=== PATIENT | male | born 2000 | race Caucasian/White ===

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

== ENCOUNTER 2024-04-25 10:08 | Inpatient (IN) | payer MEDICAID, OTHER ==
[~2024-04-25] VITALS: Ht 175.3 cm; Wt 60.0 kg
[~2024-04-25 10:08] MED LIST: IBUP-1453 PO; PANT40T PO
--- NOTE | 2024-04-25 10:20 | ED.PDOC ---
GI ASSESSMENT HPI Comments 23y F who presents to the ED for chief complaint of abdominal pain. Pt states he has been having abdominal pain for the past 2 days.Pt states his pain has been diffusely constant, non-radiating, with no associated exacerbating or relieving factors. Pt has associated nausea and vomiting but denies diarrhea, chills, dysuria, hematuria or hematemesis. Vomit is nonbilious nonbloody. Pt states he had fever of 101 earlier this AM and states he took Tylenol and ibuprofen at 9 AM but states he had no change in temperature prior to ED arrival. Pt otherwise denies any recent sick contacts or changes to diet. Pt in the ED, has noted temp of 100.1 F and noted heart rate of 119 with all vitals in normal range. Pt otherwise denies any other symptoms at this time. Vitals T: 100.1F RR: 16 HR: 119 BP: 113/72 O2: 99% on RA PMH: pancreatitis PSH: cholecystectomy Social hx: endorses tobacco use, endorsees ETOH use, endorses drug use(marijuana) Meds: denies Allergies: NKDA HPI: Poor Historian. REVIEW OF SYSTEMS: CONSTITUTIONAL: Denies acute: diaphoresis, chills, HEAD: Denies acute: headache, photophobia Eyes: Denies acute: Double vision, vision loss, eye pain, eye discharge. EARS: Denies acute: tinnitus, hearing loss, ear discharge, ear pain, THROAT: Denies acute: sore throat, swelling, difficulty swallowing , pain with swallowing, change in voice. NECK: Denies acute: neck pain, neck swelling, stiff neck. HEART: Denies acute : chest pain, palpitations, LUNGS: Denies acute: SOB, wheezing, cough, hemoptysis ABDOMEN: Denies acute: diarrhea, melena , hematemesis, hematochezia SKIN: Denies acute: rash, redness, lesions, itchiness. EXTREMITIES: Denies acute: calf pain, numbness, tingling, weakness, denies pain in extremity. Denies acute: Low back pain. Neuro: Denies acute: focal neurological deficit, motor or sensory focal neurological deficit, tremors, seizure like activity, confusion, dizziness, change in mental status, loss of bowel or bladder function, cauda equina like symptoms. : Denies acute: dysuria, hematuria, flank pain, increase in urinary frequency. PSYCH: Denies acute: hallucination, suicidal ideation, homicidal ideation. PHYSICAL EXAM: General: no acute distress, awake and alert. Head: normocephalic, atraumatic. Neck: supple, trachea is midline, no swelling. Throat: Normal phonation. Eyes:, no erythema, no purulent discharge, no proptosis, no icterus. Heart: regular tachycardia in the setting of a fever, no significant murmur appreciated. Lungs: no apparent respiratory distress, Able to speak in full sentences. No wheezing, no rhonchi, no crackles. No stridors Clear to auscultation bilaterally. Abdomen: Generalized tender to palpation, non distended, soft, no guarding, no rebound, + bowel sounds. Neuro: Awake, Alert, oriented to name, self, situation, follows commands GCS=15. Speech is normal. Skin: no petechia, no purpura, no cyanosis, non-pale, not jaundice. Lower extremities: --no - Pitting edema no deformity, no focal swelling, no calf TTP. Makes eye contact. moves all four extremities. Face: no apparent facial droop. Ambulating in the ED independently. Chief Complaint: Abdominal Pain Time Seen by MD: 10:29 Reviewed Notes: Nurses Notes, Allergies Allergies: Coded Allergies: No Known Drug Allergy (Verified Allergy, Unknown, 12/28/20) Home Meds Active Scripts Ibuprofen (Ibuprofen) 400 Mg Tab, 1 TAB PO TID PRN, #30 TAB Prov:SALOMÓN AMADOR MD 01/03/21 Pantoprazole Sodium Sesquihydr (Pantoprazole Sodium) 40 Mg Tab, 40 MG PO DAILY for 30 Days, #30 TAB Prov:SALOMÓN AMADOR MD 01/03/21 Information Source: Patient Mode of Arrival: Ambulatory Brought in by: self Past Medical History PAST MEDICAL HISTORY: Denies Surgical History: Cholecystectomy Family History Family History: Reviewed,noncontributory to illness Social History Smoker: Non-Smoker Alcohol: Denies ETOH Use Drugs: Marijuana Lives In: Home Was a procedure done? Was a procedure done?: No GI differential Dx Differential Diagnosis: Other (DDX include but not limited to diverticulitis, colitis, gastroenteritis, acute abdomen, SBO, enteritis, constipation, volvulus, appendicitis, Gallbladder disease, choledocolithiasis, ascending cholangitis, pancreatitis, intraAbdominal mass/neoplasm, hepatitis, UTI, pylonephritis, kidney stone, aneurysm, dissection, Inflammatory bowel disease, gastroparesis, ischemic bowel.) X-Ray, Labs, Meds, VS Vital Signs Date Time Temp Pulse Resp B/P (MAP) Pulse Ox O2 Delivery O2 Flow Rate FiO2 04/25/24 16:20 91.2 69 18 107/68 (81) 96 91.2 04/25/24 13:30 98.7 70 18 108/68 (81) 99 98.7 04/25/24 11:33 98.7 98.7 04/25/24 10:41 115 19 99 Room Air* 0 21 04/25/24 10:39 101.3 115 19 112/76 (88) 99 101.3 04/25/24 10:13 100.1 119 16 113/72 (86) 99 Lab Test 04/25/24 13:42 04/25/24 11:59 04/25/24 11:17 04/25/24 10:48 Range/Units White Blood Count 13.4 H 13.3 H 4.4-10.8 10^3/uL Red Blood Count 5.18 4.99 4.5-5.90 10^6/uL Hemoglobin 15.6 15.3 13.5-17.5 g/dL Hematocrit 46.6 44.5 41.0-53.0 % Mean Corpuscular Volume 90.0 89.2 80.0-100.0 fL Mean Corpuscular Hemoglobin 30.2 30.7 28.0-32.0 pg Mean Corpuscular Hemoglobin Concent 33.5 34.5 32.0-36.0 g/dL Red Cell Distribution Width 13.7 13.8 11.8-14.3 % Platelet Count 85 L 108 L 140-450 10^3/uL Mean Platelet Volume 7.7 8.3 6.9-10.8 fL Neutrophils (%) (Auto) 90.0 H 95.7 H 37.0-80.0 % Lymphocytes (%) (Auto) 6.8 L 1.6 L 10.0-50.0 % Monocytes (%) (Auto) 3.0 2.2 0.0-12.0 % Eosinophils (%) (Auto) 0.0 0.0 0.0-7.0 % Basophils (%) (Auto) 0.2 0.5 0.0-2.0 % Neutrophils # (Auto) 12.0 H 12.8 H 1.6-8.6 10 ^3/uL Lymphocytes # (Auto) 0.9 0.2 L 0.4-5.4 10 ^3/uL Monocytes # (Auto) 0.4 0.3 0-1.3 10 ^3/uL Eosinophils # (Auto) 0 0 0-0.8 10 ^3/uL Basophils # (Auto) 0 0.1 0-0.2 10 ^3/uL Nucleated Red Blood Cells 0.1 0.0 % Platelet Estimate Decreased Red Blood Cell Morphology Normal Sodium Level 139 135 L 136-145 mmol/L Potassium Level 4.0 3.7 3.5-5.1 mmol/L Chloride Level 103 98 98-107 mmol/L Carbon Dioxide Level 28 29 20-31 mmol/L Anion Gap 8 8 5-15 Blood Urea Nitrogen 16 17 9-23 mg/dL Creatinine 1.10 1.34 H 0.700-1.30 mg/dL Glomerular Filtration Rate Calc 97 77 >90 mL/min BUN/Creatinine Ratio 14.5 12.7 10.0-20.0 Serum Glucose 107 H 118 H 74-106 mg/dL Calcium Level 9.8 10.0 8.7-10.4 mg/dL Total Bilirubin 1.8 H 2.4 H 0.2-1.0 mg/dL Aspartate Amino Transferase (AST) 140 H 100 H 13-40 U/L Alanine Aminotransferase (ALT) 138 H 97 H 7-40 U/L Alkaline Phosphatase 69 70 46-116 U/L Total Protein 7.3 7.2 5.7-8.2 g/dL Albumin 4.9 H 4.7 3.2-4.8 g/dL Influenza Type A Antigen Negative Negative Influenza Type B Antigen Negative Negative SARS-CoV-2 Antigen (Rapid) Negative NEGATIVE Urine Color Yellow Yellow Urine Clarity Clear Clear Urine pH 6.5 5.0-9.0 Urine Specific [place] 1.032 1.001-1.035 Urine Protein 2+ H Negative Urine Ketones 1+ H Negative Urine Blood Trace H Negative /uL Urine Nitrite Negative Negative Urine Bilirubin Negative Negative Urine Urobilinogen Normal Negative mg/dL Urine Leukocyte Esterase Negative Negative /uL Urine RBC 2 0 - 3 /hpf Urine WBC 2 0 - 3 /hpf Urine Squamous Epithelial Cells None seen <5 /hpf Urine Bacteria None seen None Seen /hpf Urine Glucose Normal Normal mg/dL Urine Opiates Screen Neg NEGATIVE Urine Fentanyl Screen Neg NEGATIVE Urine Barbiturates Screen Neg NEGATIVE Urine Phencyclidine Screen Neg NEGATIVE Urine Amphetamines Screen Neg NEGATIVE Urine Benzodiazepines Screen Neg NEGATIVE Urine Cocaine Screen Neg NEGATIVE Urine Cannabinoids Screen Pos NEGATIVE Lactic Acid Level 1.7 0.4-2.0 mmol/L Troponin I High Sensitivity < 3 L </=54 ng/L Lipase 31 12-53 U/L Current Medications Medications (Trade) Dose Ordered Sig/Kishor Route Start Time Stop Time Status Last Admin Sodium Chloride 1,000 ml @ 1,000 mls/hr Q1H ONCE IV 04/25/24 10:45 04/25/24 11:44 DC 04/25/24 10:53 Ondansetron HCl (Zofran) 8 mg ONCE ONCE IV 04/25/24 10:45 04/25/24 10:46 DC 04/25/24 10:53 Acetaminophen/ Hydrocodone Bitart ([place] 5/325MG Tab) 1 tab ONCE ONCE PO 04/25/24 11:00 04/25/24 11:01 DC 04/25/24 10:58 [place] [id number] Ph: [phone] DIAGNOSTIC IMAGING Diagnostic Imaging Report : [id number] Signed PATIENT: RIGOBERTO MCKEON ACCT: [id number] UNIT: [id number] : 2000 LOC: ER ROOM / BED: / AGE / SEX: 23 / M ADM STATUS: REG ER SERVICE 1028 ORDERING PHYSICIAN: MERRILL LUNA DO PROCEDURE(s): ABPL - CT AB PEL WO CON-NO ORAL OR IV REASON: ABD PAIN N/V ORDER NUMBER(s): [id number], ACCESSION NUMBER(s): [id number] CT ABDOMEN AND PELVIS WITHOUT CONTRAST CLINICAL HISTORY: ABD PAIN N/V TECHNIQUE: Multiple contiguous axial images of the abdomen and pelvis without intravenous contrast. The images were reformatted degenerate coronal and sagittal reconstructions. All CT scans at this medical facility are performed using dose modulation techniques as appropriate to a performed exam including the following:Automated exposure control was utilized; adjustment of the MA and/or KV according to patient size; and use of iterative reconstruction technique. Radiation Dose Information: CT Dose: CTDI volume is 5.07 mGy. Dose-length product is 290.12 mGy*cm Comparison: CT ABD PELVIS WO CONTRAST on DOS: 12/28/20 FINDINGS: Evaluation of the abdomen and pelvis is limited without intravenous contrast. Gallbladder is surgically absent. The liver, pancreas, kidneys, adrenal glands, and spleen appear within normal limits. There is no gross evidence of abdominal lymphadenopathy. There is no free fluid or free air. The stomach grossly appears unremarkable. The small and large bowel loops demonstrate normal caliber. The appendix is not readily seen in the right lower quadrant abdomen. There are no secondary signs of acute appendicitis. The abdominal aorta and IVC appear within normal limits. Bladder is poorly filled limiting evaluation. Pelvic organ appears within normal limits. There is no gross evidence of a pelvic mass. There is no free fluid collection. Lung bases are clear. There is no acute osseous abnormality. IMPRESSION: 1. There is no acute process in the abdomen and pelvis. 2. Cholecystectomy. HS:Y ATED BY: SAAD HAWTHORNE MD DICTATED DATE/TIME: 04/25/24 105 SIGNED BY: SAAD HAWTHORNE MD SIGNED DATE/TIME: 04/25/241056 CC: Time of 1ST Reevaluation: 19:44 Reevaluation 1ST: Improved Patient Education/Counseling: Diagnosis, Treatment Family Education/Counseling: No Family Present Comments Patient presented with the above HPI.----abdominal pain--workup was initiated. p atient was found with the above mentioned diagnosis. Patient was given: Fluids, Zofran, fentanyl. Patient ED course and VS have been stabilized. Patient has been reassessed in the ED and remained in a stable condition. Pertinent incidental findings were discussed with the patient and/or family. Patient/family voices understanding and is agreeable with plan. Patient has been observed in the ED adequate length of time to insure improvement/stability. Repeat labs showed worsening of his LFTs. patient was admitted to the medicine team for further evaluation and treatment of their presentation. All the reports of any imaging studies that were ordered by myself were reviewed by myself. Departure 1 Departure Time of Disposition: 14:26 Impression: Primary Impression: Acute abdominal pain Additional Impressions: Nausea and vomiting Elevated LFTs Disposition: ADMITTED INPATIENT Admit to: Med Surg Condition: Guarded Additional Instructions: Additional discharge instructions: You MUST follow-up with your primary care/family doctor in 1 to 2 days. If you are unable to see your primary care/family doctor, please return to our emergency room for re-assessment and re-evaluation in 1 to 2 days. Return to the emergency room here in our facility or to the nearest ER [facility] if your symptoms change or worsen. CONSULTATIONS: you MUST Follow-up for consultation as soon as possible with: gastroenterology in 1-2 days. Please call for appointment. You MUST call the consultants office yourself to make an appointment. You may need to arrange that through your insurance and/or your primary/family doctor. If you are unable to see the international travel consultant in 1 to 2 days, you must return to our emergency room (or any other ER of your choice) for re-assessment and re- evaluation. Adequate fluid hydration. Avoid fatty greasy spicy food. Avoid caffeinated products. Avoid NSAIDs. Below is a copy of your radiological report for follow up: [place] [address] Ph: [phone] DIAGNOSTIC IMAGING Diagnostic Imaging Report : [id number] Signed PATIENT: RIGOBERTO MCKEON ACCT: [id number] UNIT: [id number] : 2000 LOC: ER ROOM / BED: / AGE / SEX: 23 / M ADM STATUS: REG ER SERVICE 1028 ORDERING PHYSICIAN: MERRILL LUNA DO PROCEDURE(s): ABPL - CT AB PEL WO CON-NO ORAL OR IV REASON: ABD PAIN N/V ORDER NUMBER(s): [id number], ACCESSION NUMBER(s): [id number] CT ABDOMEN AND PELVIS WITHOUT CONTRAST CLINICAL HISTORY: ABD PAIN N/V TECHNIQUE: Multiple contiguous axial images of the abdomen and pelvis without intravenous contrast. The images were reformatted degenerate coronal and sagittal reconstructions. All CT scans at this medical facility are performed using dose modulation techniques as appropriate to a performed exam including the following:Automated exposure control was utilized; adjustment of the MA and/or KV according to patient size; and use of iterative reconstruction technique. Radiation Dose Information: CT Dose: CTDI volume is 5.07 mGy. Dose-length product is 290.12 mGy*cm Comparison: CT ABD PELVIS WO CONTRAST on DOS: 12/28/20 FINDINGS: Evaluation of the abdomen and pelvis is limited without intravenous contrast. Gallbladder is surgically absent. The liver, pancreas, kidneys, adrenal glands, and spleen appear within normal limits. There is no gross evidence of abdominal lymphadenopathy. There is no free fluid or free air. The stomach grossly appears unremarkable. The small and large bowel loops demonstrate normal caliber. The appendix is not readily seen in the right lower quadrant abdomen. There are no secondary signs of acute appendicitis. The abdominal aorta and IVC appear within normal limits. Bladder is poorly filled limiting evaluation. Pelvic organ appears within normal limits. There is no gross evidence of a pelvic mass. There is no free fluid collection. Lung bases are clear. There is no acute osseous abnormality. IMPRESSION: 1. There is no acute process in the abdomen and pelvis. 2. Cholecystectomy. HS:Y ATED BY: SAAD HAWTHORNE MD DICTATED DATE/TIME: 04/25/24 1057 SIGNED BY: SAAD HAWTHORNE MD SIGNED DATE/TIME: 04/25/24 105 CC: Discharged With: Self Critical Care Note Critical Care Time?: No I personally scribed for MERRILL LUNA DO ([email or web address]) on 04/25/24 at 10:20. Electronically submitted by Guicho Mares (TOMER). I personally scribed for MERRILL LUNA DO ([email or web address]) on 04/25/24 at 10:29. Electronically submitted by Guicho Mares (TOMER). I personally scribed for MERRILL LUNA DO ([email or web address]) on 04/25/24 at 11:35. Electronically submitted by Guicho Mares (TOMER). I personally scribed for MERRILL LUNA DO ([email or web address]) on 04/25/24 at 14:53. Electronically submitted by Guicho Mares (TOMER). MERRILL LUNA DO Apr 25, 2024 10:20
[2024-04-25 10:41] VITALS: PULSE 115; RESP 19; O2SAT 99
[2024-04-25] MEDS ORDERED: fentaNYL CITRATE 100 MCG/2 ML VL IV ONE (10:45)
[2024-04-25] MEDS: SODIUM CHLORIDE 0.9% 1,000 ML IV ONE (10:53)
[2024-04-25] MEDS: ONDANSETRON HCL 4 MG/2 ML VIAL IV ONE (10:53)
[2024-04-25] MEDS: HYDROcodone-ACET 5/325MG TAB PO ONE (10:58)
--- NOTE | 2024-04-25 10:58 | DVH ---
CT ABDOMEN AND PELVIS WITHOUT CONTRAST CLINICAL HISTORY: ABD PAIN N/V TECHNIQUE: Multiple contiguous axial images of the abdomen and pelvis without intravenous contrast. The images were reformatted degenerate coronal and sagittal reconstructions. All CT scans at this medical facility are performed using dose modulation techniques as appropriate t o a performed exam including the following:Automated exposure control was utilized; adjustment of the MA and/or KV according to patient size; and use of iterative reconstruction technique. Radiation Dose Information: CT Dose: CTDI volume is 5.07 mGy. Dose-length product is 290.12 mGy*cm Comparison: CT ABD PELVIS WO CONTRAST on DOS: 12/28/20 FINDINGS: Evaluation of the abdomen and pelvis is limited without intravenous contrast. Gallbladder is surgically absent. The liver, pancreas, kidneys, adrenal glands, and spleen appear within normal limits. There is no gross evidence of abdominal lymphadenopathy. There is no free fluid or free air. The stomach grossly appears unremarkable. The small and large bowel loops demonstrate normal caliber . The appendix is not readily seen in the right lower quadrant abdomen. There are no secondary signs of acute appendicitis. The abdominal aorta and IVC appear within normal limits. Bladder is poorly filled limiting evaluation. Pelvic organ appears within normal limits. There is no gross evidence of a pelvic mass. There is no free fluid collection. Lung bases are clear. There is no acute osseous abnormality. IMPRESSION: 1. There is no acute process in the abdomen and pelvis. 2. Cholecystectomy. HS:Y
[2024-04-25 11:19] LABS: Urine Bacteria None Seen /hpf (None Seen)
[2024-04-25 11:22] LABS: Eosinophils # (auto) 0 10 ^3/uL (0-0.8); Hemoglobin 15.3 g/dL (13.5-17.5); Lymphocytes # (auto) 0.2 10 ^3/uL (0.4-5.4); Monocytes # (auto) 0.3 10 ^3/uL (0-1.3); Monocytes % (auto) 2.2 % (0.0-12.0); Neutrophils # (auto) 12.8 10 ^3/uL (1.6-8.6); White Blood Cell 13.3 10^3/uL (4.4-10.8)
[2024-04-25 11:38] LABS: Alanine Aminotransferase 97 U/L (7-40); Albumin 4.7 g/dL (3.2-4.8); Alkaline Phosphatase 70 U/L (46-116); Anion Gap 8 (5-15); Aspartate Aminotransferase 100 U/L (13-40); BUN/Creatinine Ratio 12.7 (10.0-20.0); Basophils # (auto) 0.1 10 ^3/uL (0-0.2); Basophils % (auto) 0.5 % (0.0-2.0); Bilirubin, Total 2.4 mg/dL (0.2-1.0); Blood Urea Nitrogen 17 mg/dL (9-23); Carbon Dioxide 29 mmol/L (20-31); Chloride 98 mmol/L (98-107); Glucose 118 mg/dL (74-106); Hematocrit 44.5 % (41.0-53.0); Lymphocytes % (auto) 1.6 % (10.0-50.0); Mean Corpuscular Hemoglobin 30.7 pg (28.0-32.0); Mean Corpuscular Hgb Conc. 34.5 g/dL (32.0-36.0); Mean Corpuscular Volume 89.2 fL (80.0-100.0); Neutrophils % (auto) 95.7 % (37.0-80.0); Platelet Count (auto) 108 10^3/uL (140-450); Potassium 3.7 mmol/L (3.5-5.1); Red Blood Cells 4.99 10^6/uL (4.5-5.90); Red Cell Distribution Width 13.8 % (11.8-14.3); Sodium 135 mmol/L (136-145); Total Protein 7.2 g/dL (5.7-8.2)
[2024-04-25 12:00] LABS: Amphetamine Screen, Urine Neg (NEGATIVE); Barbiturate Scree,Urine Neg (NEGATIVE); Benzodiazephine Screen, Urine Neg (NEGATIVE); Cannabinoid Screen, Urine Pos (NEGATIVE); Cocaine Screen, Urine Neg (NEGATIVE); Opiate Scree,Urine Neg (NEGATIVE); Phencyclidine Screen, Urine Neg (NEGATIVE)
[2024-04-25 12:01] LABS: Urine Blood TRACE /uL (Negative); Urine Clarity Clear (Clear); Urine Color Yellow (Yellow); Urine Protein, UAD 2+ (Negative); Urine Specific Gravity 1.032 (1.001-1.035); Urine Urobilinogen Normal (Negative); Urine WBC 2 /hpf (0 - 3); Urine pH 6.5 (5.0-9.0)
[2024-04-25 12:19] LABS: Lipase 31 U/L (12-53)
[2024-04-25 17:07] LABS: COVID19 ANTIGEN SOFIA FIA NEGATIVE (NEGATIVE); Rapid Influenza A Negative (Negative); Rapid Influenza B Negative (Negative)
[2024-04-25 18:02] LABS: Basophils # (auto) 0 10 ^3/uL (0-0.2); Basophils % (auto) 0.2 % (0.0-2.0); Eosinophils # (auto) 0 10 ^3/uL (0-0.8); Hematocrit 46.6 % (41.0-53.0); Hemoglobin 15.6 g/dL (13.5-17.5); Lymphocytes # (auto) 0.9 10 ^3/uL (0.4-5.4); Lymphocytes % (auto) 6.8 % (10.0-50.0); Mean Corpuscular Hemoglobin 30.2 pg (28.0-32.0); Mean Corpuscular Hgb Conc. 33.5 g/dL (32.0-36.0); Monocytes # (auto) 0.4 10 ^3/uL (0-1.3); Nucleated Red Blood Cells % 0.1 %; Platelet Count (auto) 85 10^3/uL (140-450); Red Blood Cells 5.18 10^6/uL (4.5-5.90); Red Cell Distribution Width 13.7 % (11.8-14.3); White Blood Cell 13.4 10^3/uL (4.4-10.8)
[2024-04-25 18:17] LABS: Platelet Estimate Decreased; RBC Morphology Normal
[2024-04-25 18:30] LABS: Alanine Aminotransferase 138 U/L (7-40); Albumin 4.9 g/dL (3.2-4.8); Alkaline Phosphatase 69 U/L (46-116); Anion Gap 8 (5-15); Aspartate Aminotransferase 140 U/L (13-40); BUN/Creatinine Ratio 14.5 (10.0-20.0); Bilirubin, Total 1.8 mg/dL (0.2-1.0); Blood Urea Nitrogen 16 mg/dL (9-23); Calcium 9.8 mg/dL (8.7-10.4); Carbon Dioxide 28 mmol/L (20-31); Chloride 103 mmol/L (98-107); Glucose 107 mg/dL (74-106); Sodium 139 mmol/L (136-145); Total Protein 7.3 g/dL (5.7-8.2)
[2024-04-25] MEDS ORDERED: TEMAZEPAM 15 MG CAP PO PRN (19:30)
[2024-04-25] MEDS ORDERED: LORazepam 0.5 MG TAB PO PRN (19:30)
[2024-04-25] MEDS ORDERED: ONDANSETRON HCL 4 MG/2 ML VIAL IV PRN (19:30)
[2024-04-25] MEDS ORDERED: DEXTROSE (50%) 50ML SYRG IV PRN (19:30)
[2024-04-25] MEDS ORDERED: ACETAMINOPHEN 325 MG TAB PO PRN (19:30)
[2024-04-25] MEDS ORDERED: DOCUSATE SOD 100 MG CAP PO PRN (19:30)
[2024-04-25] MEDS ORDERED: MAALOX PLUS or MAALOX 30 ML PO PRN (19:30)
--- NOTE | 2024-04-25 19:49 | DVHHP2 ---
History of Present Illness Reason for Visit: abdominal pain History of Present Illness 23-year-old male with no stated past medical history other than acute pancreatitis in the past also secondary to stones patient has a history of having gallstone surgery with a complete cholecystectomy patient has been having complaints of nonradiating abdominal pain in the right upper quadrant but states that the pain has become more diffuse associated with nausea vomiting patient does have a history of smoking marijuana but denies ever having hyperemesis at this point in time patient was recommended by the ED for further evaluation and management for acute intractable abdominal pain with unknown source Review of Systems Constitutional: Yes: Weakness; No: Fever, Chills, Sweats, Malaise, Other Eyes: No: Pain, Vision change, Conjunctivae inflammation, Eyelid inflammation, Other, Redness ENT: No: Ear pain, Ear discharge, Nose pain, Nose discharge, Nose congestion, Mouth pain, Mouth swelling, Throat pain, Throat swelling, Other Respiratory: No: Cough, Dry, Shortness of breath, SOB with excertion, Wheezing, Hemoptysis, Pleuritic Pain, Sputum, Wheezing, Other Cardiovascular: No: Chest Pain, Palpitations, Orthopnea, Paroxysmal Noc. Dyspnea, Edema, Lt Headedness, Other Gastrointestinal: Nausea, Vomiting, Abdominal Pain; No: Diarrhea, Constipation, Melena, Hematochezia, Other Genitourinary: No Dysuria, No Frequency, No Incontinence, No Hematuria, No Retention, No Other Musculoskeletal: No: other, neck pain, shoulder pain, arm pain, back pain, hand pain, leg pain, foot pain Skin: No: Rash, Lesions, Jaundice, Bruising, Other Neurological: No: Weakness, Numbness, Incoordination, Change in speech, Confusion, Seizures, Other Allergies: Coded Allergies: No Known Drug Allergy (Verified Allergy, Unknown, 12/28/20) Exam Vital Signs Vital Signs Date Time Temp Pulse Resp B/P (MAP) Pulse Ox O2 Delivery O2 Flow Rate FiO2 04/25/24 16:20 91.2 69 18 107/68 (81) 96 91.2 04/25/24 10:41 Room Air* 0 21 General Appearance: Oriented X3 HEENT: Atraumatic, PERRLA Respiratory: Clear to auscultation, Normal air movement Cardiovascular: Regular rate, Normal S2 Abdominal: Normal bowel sounds, Soft, No tenderness Extremities: No clubbing, No cyanosis, No edema Skin: No rashes, No breakdown Neuro: Normal gait, Normal speech Psych/Mental Status: Mood NL Labs/Xrays Labs Test 04/25/24 13:42 04/25/24 11:59 04/25/24 11:17 04/25/24 10:48 Range/Units White Blood Count 13.4 H 4.4-10.8 10^3/uL Red Blood Count 5.18 4.5-5.90 10^6/uL Hemoglobin 15.6 13.5-17.5 g/dL Hematocrit 46.6 41.0-53.0 % Mean Corpuscular Volume 90.0 80.0-100.0 fL Mean Corpuscular Hemoglobin 30.2 28.0-32.0 pg Mean Corpuscular Hemoglobin Concent 33.5 32.0-36.0 g/dL Red Cell Distribution Width 13.7 11.8-14.3 % Platelet Count 85 L 140-450 10^3/uL Mean Platelet Volume 7.7 6.9-10.8 fL Neutrophils (%) (Auto) 90.0 H 37.0-80.0 % Lymphocytes (%) (Auto) 6.8 L 10.0-50.0 % Monocytes (%) (Auto) 3.0 0.0-12.0 % Eosinophils (%) (Auto) 0.0 0.0-7.0 % Basophils (%) (Auto) 0.2 0.0-2.0 % Neutrophils # (Auto) 12.0 H 1.6-8.6 10 ^3/uL Lymphocytes # (Auto) 0.9 0.4-5.4 10 ^3/uL Monocytes # (Auto) 0.4 0-1.3 10 ^3/uL Eosinophils # (Auto) 0 0-0.8 10 ^3/uL Basophils # (Auto) 0 0-0.2 10 ^3/uL Nucleated Red Blood Cells 0.1 % Platelet Estimate Decreased Red Blood Cell Morphology Normal Sodium Level 139 136-145 mmol/L Potassium Level 4.0 3.5-5.1 mmol/L Chloride Level 103 98-107 mmol/L Carbon Dioxide Level 28 20-31 mmol/L Anion Gap 8 5-15 Blood Urea Nitrogen 16 9-23 mg/dL Creatinine 1.10 0.700-1.30 mg/dL Glomerular Filtration Rate Calc 97 >90 mL/min BUN/Creatinine Ratio 14.5 10.0-20.0 Serum Glucose 107 H 74-106 mg/dL Calcium Level 9.8 8.7-10.4 mg/dL Total Bilirubin 1.8 H 0.2-1.0 mg/dL Aspartate Amino Transferase (AST) 140 H 13-40 U/L Alanine Aminotransferase (ALT) 138 H 7-40 U/L Alkaline Phosphatase 69 46-116 U/L Total Protein 7.3 5.7-8.2 g/dL Albumin 4.9 H 3.2-4.8 g/dL Influenza Type A Antigen Negative Negative Influenza Type B Antigen Negative Negative SARS-CoV-2 Antigen (Rapid) Negative NEGATIVE Urine Color Yellow Yellow Urine Clarity Clear Clear Urine pH 6.5 5.0-9.0 Urine Specific [place] 1.032 1.001-1.035 Urine Protein 2+ H Negative Urine Ketones 1+ H Negative Urine Blood Trace H Negative /uL Urine Nitrite Negative Negative Urine Bilirubin Negative Negative Urine Urobilinogen Normal Negative mg/dL Urine Leukocyte Esterase Negative Negative /uL Urine RBC 2 0 - 3 /hpf Urine WBC 2 0 - 3 /hpf Urine Squamous Epithelial Cells None seen <5 /hpf Urine Bacteria None seen None Seen /hpf Urine Glucose Normal Normal mg/dL Urine Opiates Screen Neg NEGATIVE Urine Fentanyl Screen Neg NEGATIVE Urine Barbiturates Screen Neg NEGATIVE Urine Phencyclidine Screen Neg NEGATIVE Urine Amphetamines Screen Neg NEGATIVE Urine Benzodiazepines Screen Neg NEGATIVE Urine Cocaine Screen Neg NEGATIVE Urine Cannabinoids Screen Pos NEGATIVE Lactic Acid Level 1.7 0.4-2.0 mmol/L Troponin I High Sensitivity < 3 L </=54 ng/L Lipase 31 12-53 U/L Assessment/Plan Assessment/Plan Admit to [facility] Acute abdominal pain Rule out common bile duct dilatation Rule out acute hepatitis The source of the pain is unknown unconfirmed Patient with a history of cholecystectomy CT scan confirms cholecystectomy completed Right upper quadrant ultrasound for common bile duct dilatation evaluation of possible residual stones Elevated AST ALT ALP Possible acute hepatitis Hepatitis panel ordered for evaluation Patient with elevated white count unconfirmed source of infection IV antibiotics Flagyl P.r.n. pain medication IV hydration Plan discussed with: Patient My Orders Orders - KILEY DAVENPORT MD Procedure Category Date Status Time Metronidazole PHA 04/25/24 Logged 500mg/100ml (Flagyl 19:30 Admit ADMIT 04/25/24 Transmitted 19:30 Code Status CODE 04/25/24 Transmitted 19:30 Vital Signs [facility] 04/25/24 In Process 19:30 Review Orders With [facility] 04/25/24 In Process Adm. 19:30 Consistent DIET 04/26/24 Transmitted Carb(Ccho)Diabetes Breakfast Sodium Chloride 0.9% PHA 04/25/24 Logged 19:30 Lorazepam Tablet PHA 04/25/24 Logged (Ativan Tablet) 19:30 Alum & Mag PHA 04/25/24 Logged Hydrox-Simethicone 19:30 Docusate Sodium PHA 04/25/24 Logged Capsule (Colace 19:30 Acetaminophen Tablet PHA 04/25/24 Logged (Tylenol Tablet) 19:30 Temazepam (Restoril) PHA 04/25/24 Logged 19:30 Notify Md Of Changes [facility] 04/25/24 In Process From Base 19:30 Advance Directive [facility] 04/25/24 In Process 19:30 Basic Metabolic Panel LAB 04/26/24 Verified 04:00 Complete Blood Count LAB 04/26/24 Verified 04:00 Patient Condition ORDERS 04/25/24 Transmitted 19:30 Allergies [facility] 04/25/24 In Process 19:30 Hydrocodone-Acet PHA 04/25/24 Logged 5/325mg Tab ([place] 19:30 Ondansetron Hcl PHA 04/25/24 Logged (Zofran) 19:[address] [facility] 04/25/24 Logged Injection 19:30 Notify Md Of Changes [facility] 04/25/24 In Process From Base 19:30 Oxygen By Nasal RT 04/25/24 Transmitted Cannula 19:30 Glucose Blood PHA 04/25/24 Logged (Accu-Chek Comfort 20:00 Insulin R (Human) PHA 04/25/24 Logged (Insulin R) 20:00 Dextrose 50% Syringe PHA 04/25/24 Logged 19:30 Gallbladder US 04/25/24 Logged 19:40 Acute Hepatitis Panel LAB 04/25/24 Logged 19:42 Problem List: (1) Polyp of gallbladder (2) Acute pancreatitis (3) Acute abdominal pain (4) Nausea and vomiting (5) Elevated LFTs Date of Service: Apr 25, 2024 Billing Provider: KILEY DAVENPORT MD Common Visit Codes: [id number] INP/OBS CARE (HIGH) KILEY DAVENPORT MD Apr 25, 2024 19:49
[2024-04-25] MEDS: InsuLIN REG 1unit/0.01ml Soln (100units/ml) SC SCH (20:00)
[2024-04-25] MEDS: ACCU-CHEK COMFORT CURVE STRIP VI SCH (20:00)
--- NOTE | 2024-04-25 21:03 | DVH ---
RIGHT UPPER QUADRANT ABDOMINAL ULTRASOUND CLINICAL HISTORY: ruq pain history of vijaya checking cbd stones COMPARISON: CT obtained earlier the same day. Ultrasound dated 12/29/2020. TECHNIQUE: Grayscale and color Doppler ultrasound imaging of the right upper quadrant is performed. FINDINGS: Pancreas: Visualized portions appear grossly unremarkable. Liver: No discrete hepatic lesions as visualized. The portal vein appears patent. Gallbladder: Status post cholecystectomy. Common bile duct: Nondilated. Right Kidney: Measures 10.8 cm in length. No hydronephrosis. Right upper quadrant Inferior vena cava: Visualized portions appear patent. IMPRESSION: Common bile duct appears normal caliber. If there is persistent concern for ductal obstruction, MRCP may be obtained to further evaluate.
[2024-04-25] MEDS: metroNIDAZOLE 500MG/100ML 100 ML IV SCH (22:00)
[2024-04-25] MEDS: SODIUM CHLORIDE 0.9% 1,000 ML IV SCH (22:15)
[2024-04-25] MEDS: MORPHINE SULFATE INJ 2 MG/ml SYRG IV PRN (22:48)
[2024-04-26] VITALS (7 sets, daily range): BP systolic 88–103; BP diastolic 44–63; PULSE 71–86; RESP 16–18; TEMP 98.1–98.9; O2SAT 97–99
[2024-04-26 04:05] LABS: Basophils # (auto) 0 10 ^3/uL (0-0.2); Basophils % (auto) 0.3 % (0.0-2.0); Eosinophils # (auto) 0 10 ^3/uL (0-0.8); Eosinophils % (auto) 0.1 % (0.0-7.0); Hematocrit 42.2 % (41.0-53.0); Hemoglobin 14.6 g/dL (13.5-17.5); Lymphocytes # (auto) 1.6 10 ^3/uL (0.4-5.4); Lymphocytes % (auto) 13.2 % (10.0-50.0); Mean Corpuscular Hemoglobin 30.9 pg (28.0-32.0); Mean Corpuscular Hgb Conc. 34.5 g/dL (32.0-36.0); Mean Corpuscular Volume 89.5 fL (80.0-100.0); Monocytes # (auto) 0.6 10 ^3/uL (0-1.3); Monocytes % (auto) 5.3 % (0.0-12.0); Neutrophils # (auto) 9.5 10 ^3/uL (1.6-8.6); Neutrophils % (auto) 81.1 % (37.0-80.0); Nucleated Red Blood Cells % 0.1 %; Platelet Count (auto) 72 10^3/uL (140-450); Red Blood Cells 4.71 10^6/uL (4.5-5.90); Red Cell Distribution Width 13.6 % (11.8-14.3); White Blood Cell 11.8 10^3/uL (4.4-10.8)
[2024-04-26 04:14] LABS: Anion Gap 6 (5-15); Carbon Dioxide 30 mmol/L (20-31); Chloride 103 mmol/L (98-107); Potassium 3.8 mmol/L (3.5-5.1); Sodium 139 mmol/L (136-145)
[2024-04-26 04:15] LABS: Calcium 9.6 mg/dL (8.7-10.4)
[2024-04-26 04:20] LABS: BUN/Creatinine Ratio 15.3 (10.0-20.0); Blood Urea Nitrogen 15 mg/dL (9-23); Glucose 90 mg/dL (74-106)
[2024-04-26] MEDS: cefTRIAXone 1GM/50ML D5W 50 ML IV ONE (10:20)
[2024-04-26] MEDS: SODIUM CHLORIDE 0.9% 1,000 ML IV ONE (13:45)
--- NOTE | 2024-04-26 16:52 | DVHPNRES ---
Progress Note Date Seen: Apr 26, 2024 Resident Creating Document: KIMO MONTES DE OCA RESIDENT Medical Necessity Reason Pt with a Central, PICC or Fol: No Subjective Review of Systems RIGOBERTO MCKEON is a 23-year-old male with history of pancreatitis and cholecystectomy 1 year back presented to the ED today with the chief complaints of generalized abdominal pain since 2 days prior to admission. Patient reported he has been having abdominal pain which started 2 days prior to admission associated with nausea, vomiting , fever and headache but no diarrhea, nonradiating, no aggravating or relieving factors. patient reported he ate food from outside prior to developing pain. On my assessment patient denies sick contacts, recent travel, diarrhea, hematemesis, chest pain and other associated symptoms PMH: Acute pancreatitis 1 year ago due to gallstones, cholelithiasis status post cholecystectomy PSH: Cholecystectomy 1 year ago Family history: Reviewed, noncontributory Social history: Lives at home with family. consume marijuana and occasional drinking but Denies smoking Allergies: No known allergies Patient seen and examined at the bedside. Patient reported improvement in his abdominal pain, vomiting and other symptoms since admission, reported no new complaints. CT abdominal pelvis and gallbladder ultrasound showed no acute changes. Patient is currently on IVF, ceftriaxone and metronidazole. Continue monitoring. Possible DC tomorrow Objective vital signs Vital Sign Date Time Temp Pulse Resp B/P (MAP) Pulse Ox O2 Delivery O2 Flow Rate FiO2 04/26/24 16:29 98.5 71 16 103/63 (76) 99 98.5 04/26/24 08:15 Room Air* 0 21 Total Intake and Output 04/25/24 04/25/24 04/26/24 15:00 23:00 07:00 Intake Total 1000 ml Balance 1000 ml medications Current Medications Medications Dose Ordered Sig/Kishor Route Start Time Stop Time Status Last Admin Dose Admin Metronidazole 100 ml @ 100 mls/hr Q8HR IV 04/25/24 19:30 04/26/24 15:24 100 MLS/HR Sodium Chloride 1,000 ml @ 60 mls/hr [id number] IV 04/25/24 19:30 04/25/24 22:15 60 MLS/HR Al Hydrox/Mg Hydrox/Simethicone 30 ml Q6HP PRN PO 04/25/24 19:30 Docusate Sodium 100 mg BIDPRN PRN PO 04/25/24 19:30 Acetaminophen 650 mg Q6HP PRN PO 04/25/24 19:30 Acetaminophen/ Hydrocodone Bitart 1 tab Q4HP PRN PO 04/25/24 19:30 Ondansetron HCl 4 mg Q4HP PRN IV 04/25/24 19:30 Morphine Sulfate 2 mg Q4HPRN PRN IV 04/25/24 19:30 04/25/24 22:48 2 MG Diagnostic Test (Pha) 1 strip IQ4HR 04/25/24 20:00 04/26/24 15:49 1 STRIP Insulin Human Regular IQ4HR SC 04/25/24 20:00 Dextrose 50 ml UD PRN IV 04/25/24 19:30 Ceftriaxone Sodium 50 ml @ 100 mls/hr DAILY@ IV 04/27/24 09:00 Examination Pt is lying on bed General Appearance: Alert, Oriented X3, Cooperative, Not in acute distress HEENT: Atraumatic, Mucous membranes moist/pink Respiratory: Clear to auscultation, Normal air movement, No added sounds Cardiovascular: Regular rate, Normal S1, Normal S2, No murmurs Abdominal: Mild diffuse abdominal tenderness, Active bowel sounds, Soft, Extremities: No edema, Normal pulses, No tenderness/swelling Skin: No Significant rash, except past surgical scars Neuro: Normal speech, sensorimotor deficits none Psych/Mental Status: Mental status NL, Mood NL Nurse was there as sharperone during examination laboratory and microbiology Laboratory Tests 04/26/24 03:31 Test 04/26/24 03:31 Range/Units Serum Glucose 90 74-106 mg/dL Microbiology Date/Time Source Procedure Growth Status 04/25/24 13:34 Blood Blood Culture - Preliminary NO GROWTH AFTER 24 HOURS OF INCUBATION. Resulted Labs and/or images reviewed: Labs reviewed by me, Image(s) reviewed by me Problem List/Assessment/Plan Problem List/Assessment/Plan # ? Acute gastroenteritis # sepsis unknown etiology - currently on IVF - patient is receiving ceftriaxone and metronidazole - ordered stool culture - CT abdominal pelvis and gallbladder ultrasound showed no acute changes - monitor lab # mild transaminitis # thrombocytopenia unknown etiology - monitor lab - ordered hepatitis panel # marijuana abuse disorder - patient counseled regarding cessation for more than 17 minutes No VTE PPX since patient is ambulatory No gi ppx Regular diet Goals of care discussed with the patient and family for more than 27 minutes: Full code status Case management discussed with Dr. Penny, patient and nurse Plan discussed with: Patient My Orders My Orders Orders - KIMO MONTES DE OCA RESIDENT Procedure Category Date Status Time Vitamin D, 25-Hydroxy LAB 04/26/24 In Process 09:06 Vitamin B12 LAB 04/26/24 In Process 09:06 Ceftriaxone 1gm/50ml PHA 04/27/24 In Process D5w (Rocephin) 09:00 Hiv 1&2 Antibody LAB 04/26/24 In Process 16:12 Blood Culture ANAHY 04/26/24 Logged 16:46 Hahn Stain Slide LAB 04/26/24 Verified 16:50 Date of Service: Apr 27, 2024 Billing Provider: NYDIA PENNY MD Common Visit Codes: [id number] INP/OBS CARE(HIGH) Coding Comment Comment Attending Attestation I saw and evaluated the patient. I reviewed the residents note and agree with findings and plan as documented in the residents note except as documented below. KIMO MONTES DE OCA RESIDENT Apr 26, 2024 16:52 NYDIA PENNY MD Apr 27, 2024 21:51
[2024-04-27 00:17] VITALS: BP 117/70; PULSE 73; RESP 16; TEMP 99.5; O2SAT 97
[2024-04-27 00:38] VITALS: PULSE 73; RESP 16; O2SAT 96
[2024-04-27 04:38] VITALS: BP 108/59; PULSE 77; RESP 16; TEMP 98.3; O2SAT 98
[2024-04-27] MEDS: HYDROcodone-ACET 5/325MG TAB PO PRN (05:03)
[2024-04-27 07:08] LABS: Basophils # (auto) 0 10 ^3/uL (0-0.2); Basophils % (auto) 0.3 % (0.0-2.0); Eosinophils # (auto) 0 10 ^3/uL (0-0.8); Eosinophils % (auto) 0.2 % (0.0-7.0); Hematocrit 38.5 % (41.0-53.0); Lymphocytes # (auto) 1.8 10 ^3/uL (0.4-5.4); Lymphocytes % (auto) 23.2 % (10.0-50.0); Mean Corpuscular Hemoglobin 30.2 pg (28.0-32.0); Mean Corpuscular Hgb Conc. 33.7 g/dL (32.0-36.0); Mean Corpuscular Volume 89.8 fL (80.0-100.0); Monocytes # (auto) 0.6 10 ^3/uL (0-1.3); Monocytes % (auto) 7.9 % (0.0-12.0); Neutrophils # (auto) 5.2 10 ^3/uL (1.6-8.6); Neutrophils % (auto) 68.4 % (37.0-80.0); Platelet Count (auto) 74 10^3/uL (140-450); Red Blood Cells 4.28 10^6/uL (4.5-5.90); Red Cell Distribution Width 13.4 % (11.8-14.3); White Blood Cell 7.7 10^3/uL (4.4-10.8)
[2024-04-27 07:27] LABS: Alkaline Phosphatase 53 U/L (46-116); Anion Gap 9 (5-15); BUN/Creatinine Ratio 12.2 (10.0-20.0); Blood Urea Nitrogen 11 mg/dL (9-23); Calcium 9.3 mg/dL (8.7-10.4); Carbon Dioxide 27 mmol/L (20-31); Chloride 105 mmol/L (98-107); Glucose 95 mg/dL (74-106); Potassium 3.5 mmol/L (3.5-5.1); Sodium 141 mmol/L (136-145)
[2024-04-27 07:28] LABS: Albumin 3.8 g/dL (3.2-4.8); Aspartate Aminotransferase 32 U/L (13-40)
[2024-04-27 07:29] LABS: Bilirubin, Total 0.6 mg/dL (0.2-1.0); Total Protein 5.8 g/dL (5.7-8.2)
[2024-04-27 07:32] LABS: Alanine Aminotransferase 61 U/L (7-40)
[2024-04-27 08:31] VITALS: BP 111/56; PULSE 69; RESP 17; TEMP 98.1; O2SAT 97
[2024-04-27 09:40] LABS: Hepatitis A Ab IgM Negative; Hepatitis B Core IgM Negative; Hepatitis B Surface Antigen Negative (Negative); Hepatitis C Antibody Negative (Negative)
[2024-04-27] MEDS: cefTRIAXone 1GM/50ML D5W 50 ML IV SCH (09:43)
[2024-04-27 13:00] VITALS: BP_SYST 103; BP_SYST 123; BP_DIAS 56; BP_DIAS 69; PULSE 68; PULSE 72; RESP 17; TEMP 97.9; TEMP 98.1; O2SAT 95; O2SAT 99
[2024-04-27] MEDS ORDERED: CIPR500T4 PO (13:38)
[2024-04-27] MEDS ORDERED: ACET-1882 PO (13:38)
[2024-04-27] MEDS ORDERED: METR-344 PO (13:38)
[2024-04-27] MEDS ORDERED: GICOCKTAIL PO (13:38)
[2024-04-27 13:56] VITALS: TEMP 36.6
--- NOTE | 2024-04-27 15:49 | DVHDSRES ---
Discharge Summary Date of Admission Resident Creating Document: KIMO MONTES DE OCA RESIDENT Apr 25, 2024 at 19:30 Date of Discharge: Apr 27, 2024 Admitting Diagnosis Abdominal pain Labs/Diagnostic Data: Laboratory Results Test 04/27/24 06:24 04/27/24 04:55 04/26/24 03:31 04/25/24 13:42 White Blood Count 7.7 10^3/uL (4.4-10.8) Red Blood Count 4.28 10^6/uL (4.5-5.90) Hemoglobin 13.0 g/dL (13.5-17.5) Hematocrit 38.5 % (41.0-53.0) Mean Corpuscular Volume 89.8 fL (80.0-100.0) Mean Corpuscular Hemoglobin 30.2 pg (28.0-32.0) Mean Corpuscular Hemoglobin Concent 33.7 g/dL (32.0-36.0) Red Cell Distribution Width 13.4 % (11.8-14.3) Platelet Count 74 10^3/uL (140-450) Mean Platelet Volume 8.3 fL (6.9-10.8) Neutrophils (%) (Auto) 68.4 % (37.0-80.0) Lymphocytes (%) (Auto) 23.2 % (10.0-50.0) Monocytes (%) (Auto) 7.9 % (0.0-12.0) Eosinophils (%) (Auto) 0.2 % (0.0-7.0) Basophils (%) (Auto) 0.3 % (0.0-2.0) Neutrophils # (Auto) 5.2 10 ^3/uL (1.6-8.6) Lymphocytes # (Auto) 1.8 10 ^3/uL (0.4-5.4) Monocytes # (Auto) 0.6 10 ^3/uL (0-1.3) Eosinophils # (Auto) 0 10 ^3/uL (0-0.8) Basophils # (Auto) 0 10 ^3/uL (0-0.2) Nucleated Red Blood Cells 0.0 % Sodium Level 141 mmol/L (136-145) Potassium Level 3.5 mmol/L (3.5-5.1) Chloride Level 105 mmol/L (98-107) Carbon Dioxide Level 27 mmol/L (20-31) Anion Gap 9 (5-15) Blood Urea Nitrogen 11 mg/dL (9-23) Creatinine 0.90 mg/dL (0.700-1.30) Glomerular Filtration Rate Calc 124 mL/min (>90) BUN/Creatinine Ratio 12.2 (10.0-20.0) Serum Glucose 95 mg/dL (74-106) Calcium Level 9.3 mg/dL (8.7-10.4) Total Bilirubin 0.6 mg/dL (0.2-1.0) Aspartate Amino Transferase (AST) 32 U/L (13-40) Alanine Aminotransferase (ALT) 61 U/L (7-40) Alkaline Phosphatase 53 U/L (46-116) Total Protein 5.8 g/dL (5.7-8.2) Albumin 3.8 g/dL (3.2-4.8) POC Glucose 90 mg/dl (70-106) Plasma/Serum Blood Alcohol < 3.0 mg/dL (<10) HIV (1&2) Antibody Negative (Negative) Platelet Estimate Decreased Red Blood Cell Morphology Normal Hepatitis A IgM Antibody Negative Hepatitis B Surface Antigen Negative (Negative) Hepatitis B Core IgM Antibody Negative Hepatitis C Antibody Negative (Negative) Test 04/25/24 11:59 04/25/24 11:17 04/25/24 10:48 Influenza Type A Antigen Negative (Negative) Influenza Type B Antigen Negative (Negative) SARS-CoV-2 Antigen (Rapid) Negative (NEGATIVE) Urine Color Yellow (Yellow) Urine Clarity Clear (Clear) Urine pH 6.5 (5.0-9.0) Urine Specific [place] 1.032 (1.001-1.035) Urine Protein 2+ (Negative) Urine Ketones 1+ (Negative) Urine Blood Trace /uL (Negative) Urine Nitrite Negative (Negative) Urine Bilirubin Negative (Negative) Urine Urobilinogen Normal mg/dL (Negative) Urine Leukocyte Esterase Negative /uL (Negative) Urine RBC 2 /hpf (0 - 3) Urine WBC 2 /hpf (0 - 3) Urine Squamous Epithelial Cells None seen /hpf (<5) Urine Bacteria None seen /hpf (None Seen) Urine Glucose Normal mg/dL (Normal) Urine Opiates Screen Neg (NEGATIVE) Urine Fentanyl Screen Neg (NEGATIVE) Urine Barbiturates Screen Neg (NEGATIVE) Urine Phencyclidine Screen Neg (NEGATIVE) Urine Amphetamines Screen Neg (NEGATIVE) Urine Benzodiazepines Screen Neg (NEGATIVE) Urine Cocaine Screen Neg (NEGATIVE) Urine Cannabinoids Screen Pos (NEGATIVE) Lactic Acid Level 1.7 mmol/L (0.4-2.0) Troponin I High Sensitivity < 3 ng/L (</=54) Lipase 31 U/L (12-53) Other Laboratory Tests 04/27/24 06:24 Brief Hx & Hospital Course: RIGOBERTO MCKEON is a 23-year-old male with history of pancreatitis and cholecystectomy 1 year back presented to the ED today with the chief complaints of generalized abdominal pain since 2 days prior to admission. Patient reported he has been having abdominal pain which started 2 days prior to admission associated with nausea, vomiting , fever and headache but no diarrhea, nonradiating, no aggravating or relieving factors. patient reported he ate food from outside prior to developing pain. On my assessment patient denies sick contacts, recent travel, diarrhea, hematemesis, chest pain and other associated symptoms Patient required hospital admission for further evaluation and management. CT abdominal pelvis and gallbladder ultrasound showed no acute changes. Patient is was on IVF, ceftriaxone and metronidazole due to sepsis, ordered blood cultures. Due to mild transaminitis and thrombocytopenia continuously monitored the lab. Ordered hepatitis panel which was negative. Patient was counseled regarding marijuana cessation. Patient condition was improved, hemodynamically stable and in condition to be discharged home with optimal medical treatment. Discharge plan discussed with the patient and agreed to the plan. Patient was advised about healthy lifestyle habits including diet and exercise and to follow up with PCP Pt is lying on bed General Appearance: Alert, Oriented X3, Cooperative, Not in acute distress HEENT: Atraumatic, Mucous membranes moist/pink Respiratory: Clear to auscultation, Normal air movement, No added sounds Cardiovascular: Regular rate, Normal S1, Normal S2, No murmurs Abdominal: Mild diffuse abdominal tenderness, Active bowel sounds, Soft, Extremities: No edema, Normal pulses, No tenderness/swelling Skin: No Significant rash, except past surgical scars Neuro: Normal speech, sensorimotor deficits none Psych/Mental Status: Mental status NL, Mood NL Nurse was there as sharperone during examination Operations or Procedures RIGHT UPPER QUADRANT ABDOMINAL ULTRASOUND Common bile duct appears normal caliber. If there is persistent concern for ductal obstruction, MRCP may be obtained to further evaluate. CT ABDOMEN AND PELVIS WITHOUT CONTRAST IMPRESSION: 1. There is no acute process in the abdomen and pelvis. 2. Cholecystectomy. Condition at Discharge: Stable Final Diagnosis/Problems List # ? Acute gastroenteritis # sepsis unknown etiology # mild transaminitis # thrombocytopenia unknown etiology # marijuana abuse disorder Discharge Disposition: Home Discharge Instruct/Medications Diet: Regular Activity: No Restrictions, As Tolerated Follow Up/Referral: PCP Medications: per EMR Discharge Statement: "Patient was advised to return to the ER or call 911 if any headaches, dizziness, shortness of breath, chest pain, abdominal pain, bleeding, fevers, or worsening of medical condition. Patient was counseled about treatment plan, medications, possible side effects, patientverbalized understanding. All questions were answered to the best of my ability. This discharge took greater then 30 minutes in planning, reviewing documentation, counseling the patient, and discussing with other team members." ASSESSMENT ASSESSMENT Assessment ? gastroenteritis sepsis unspecified Date of Service: Apr 27, 2024 Billing Provider: NYDIA GASTELUM MD Common Visit Codes: [id number] DISCH DAY >30min Coding Comment Comment Attending Attestation I saw and evaluated the patient. I reviewed the residents note and agree with findings and plan as documented in the residents note except as documented below. Sepsis ruled out, abdominal pain from acute viral/noninfectious gastroenteritis, transaminitis thrombocytopenia KIMO MONTES DE OCA RESIDENT Apr 27, 2024 15:49 NYDIA GASTELUM MD Apr 27, 2024 21:52
== END 2024-04-27 14:35 | disposition home or self-care (01) | DRG 720 ==
LOC: ER 10:08 → OVERFLOW 19:30 → WEST WING 04-26 23:36
PROVIDERS: ADMIT Student in an Organized Health Care Education/Training Program; ATTEND Student in an Organized Health Care Education/Training Program
DX: A41.9 Sepsis, unspecified organism (principal); D69.6 Thrombocytopenia, unspecified; Z20.822 Contact with and (suspected) exposure to COVID-19; K82.4 Cholesterolosis of gallbladder; R79.89 Other specified abnormal findings of blood chemistry; K52.9 Noninfective gastroenteritis and colitis, unspecified; F12.10 Cannabis abuse, uncomplicated; Z90.49 Acquired absence of other specified parts of digestive tract
CPT/HCPCS: 36415; 74176; 76705; 80048; 80053; 80074; 80307; 80320; 81001; 82306; 82607; 82962; 83605; 83690; 84484; 85025; 86703; 87040; 87426; 87804; 96374; 96375; G0378; J2405; J3490

== ENCOUNTER 2025-03-30 11:38 | Emergency (ER) | payer MEDICAID ==
[~2025-03-30] VITALS: Ht 175.3 cm; Wt 62.9 kg
[~2025-03-30 11:38] MED LIST changes: +ACET-1882 PO; +CIPR500T4 PO; +GICOCKTAIL PO; +METR-344 PO
--- NOTE | 2025-03-30 12:59 | DVH ---
EXAM: XY L HAND 3V XRAY HISTORY: INJURY COMPARISON: None TECHNIQUE: Three views of the left hand were performed. FINDINGS: No acute fracture or dislocation are identified about the left hand. There is lateral soft tissue sw elling in the ulnar side of the hand. IMPRESSION: 1. No acute fracture or dislocation is identified about the left hand. 2. Lateral soft tissue swelling in the ulnar side of the hand.
--- NOTE | 2025-03-30 13:04 | ED.PDOC ---
Musculoskeletal HPI Comments A 24 YEAR OLD MALE PRESENTS TO THE ED WITH COMPLAINT OF LEFT HAND PAIN AND SWELLING. PATIENT STATES THAT HE ACCIDENTALLY HIT HIS LEFT HAND WITH A HAMMER HE WAS USING 2 DAYS AGO AND IS NOW EXPERIENCING LEFT HAND PAIN WITH REDNESS AND SWELLING. PATIENT DENIES FEVER, CHILLS, SHORTNESS OF BREATH, CHEST PAIN, ABDOMINAL PAIN, NAUSEA, VOMITING, HEADACHE, OR OTHER COMPLAINTS. NO OTHER SYMPTOMS OR MODIFYING FACTORS AT THIS TIME. PATIENT IS ALERT, ORIENTED X 4, AND HAS STEADY GAIT. Chief Complaint: Upper Extremity Time Seen by MD: 11:44 Primary Care Provider: UNNKNOWN Reviewed Notes: Nurses Notes, Medications, Allergies Allergies: Coded Allergies: No Known Drug Allergy (Verified Allergy, Unknown, 12/28/20) Home Meds Active Scripts Metronidazole (Flagyl) 500 Mg Tab, 1 TAB PO TID for 5 Days, #15 TAB Prov:KHRIS CERRATO 04/27/24 Ciprofloxacin Hcl (Ciprofloxacin Hcl) 500 Mg Tab, 1 TAB PO BID for 5 Days, #10 TAB Prov:KHRIS CERRATO 04/27/24 Alum & Mag Hydrox-Simethicone (Gi Cocktail) 55 Ml Ss, 30 ML PO Q6HP PRN for 30 Days, #120 ML Prov:KHRIS CERRATO 04/27/24 Acetaminophen (Acetaminophen) 325 Mg Tab, 650 MG PO Q6HP PRN for 10 Days, #80 TAB Prov:KHRIS CERRATO 04/27/24 Ibuprofen (Ibuprofen) 400 Mg Tab, 1 TAB PO TID PRN, #30 TAB Prov:SALOMÓN AMADOR MD 01/03/21 Pantoprazole Sodium Sesquihydr (Pantoprazole Sodium) 40 Mg Tab, 40 MG PO DAILY for 30 Days, #30 TAB Prov:SALOMÓN AMADOR MD 01/03/21 Information Source: Patient Mode of Arrival: Ambulatory Location: Left Extremity Location: Hand Timing: Days Prehospital treatment: None Severity: Moderate Able to Move Extremity: Yes Bear Weight: Fully Pain: Moderate Mechanism: Blunt Trauma Circumstances: Accident Onset of Symptoms: After Trauma Symptoms: Swelling, Pain, Erythema DVT Risk Factors: NONE Last Tetanus: UTD, Unknown Associated signs and symptoms: None Past Medical History PAST MEDICAL HISTORY: Denies Surgical History: Cholecystectomy Family History Family History: Reviewed,noncontributory to illness Social History Smoker: Non-Smoker Alcohol: Denies ETOH Use Drugs: Marijuana Lives In: Home Constitutional: denies: chills, diaphoresis, fatigue, fever, malaise, sweats, weakness, others EENTM: denies: blurred vision, double vision, ear bleeding, ear discharge, ear drainage, ear pain, ear ringing, eye pain, eye redness, hearing loss, mouth pain, mouth swelling, nasal discharge, nose bleeding, nose congestion, nose pain, photophobia, tearing, throat pain, throat swelling, voice changes, others Respiratory: denies: cough, hemoptysis, orthopnea, SOB at rest, shortness of breath, SOB with excertion, stridor, wheezing, others Cardiovascular: denies: chest pain, dizzy spells, diaphoresis, Dyspnea on exertion, edema, irregular heart beat, left arm pain, lightheadedness, palpitations, PND, syncope, others Gastrointestinal: denies: abdomen distended, abdominal pain, blood streaked bowels, constipated, diarrhea, dysphagia, difficulty swallowing, hematemesis, melena, nausea, poor appetite, poor fluid intake, rectal bleeding, rectal pain, vomiting, others Genitourinary: denies: burning, dysuria, flank pain, frequency, hematuria, incontinence, penile discharge, penile sore, pain, testicle pain, testicle swelling, urgency, others Neurological: denies: dizziness, fainting, headache, left sided numbness, left sided weakness, numbness, paresthesia, pre-existing deficit, right sided numbness, right sided weakness, seizure, speech problems, tingling, tremors, weakness, others Musculoskeletal: reports: joint pain, joint swelling, others (LEFT HAND PAIN AND SWELLING); denies: back pain, gout, muscle pain, muscle stiffness, neck pain Integumetry: reports: bruises (LEFT DORSAL HAND ); denies: change in color, change in hair/nails, dryness, laceration, lesions, lumps, rash, wounds, others Allergic/Immunocompromised: denies: Difficulty Healing, Frequent Infections, Hives, Itching, others Hematologic/Lymphatic: denies: anemia, blood clots, easy bleeding, easy bruising, swollen glands, others Endocrine: denies: excessive hunger, excessive sweating, excessive thirst, excessive urination, flushing, intolerance to cold, intolerance to heat, unexp lained weight gain, unexplained weight loss, others Psychiatric: denies: anxiety, bipolar disorder, depression, hopeless, panic disorder, schizophrenia, sleepless, suicidal, others All Other Systems: Reviewed and Negative Physical Exam General Appearance: No Apparent Distress, Normal HEENT: Normal ENT Inspection, PERRL/EOMI, Pharynx Normal, TMs Normal Neck: Full Range of Motion, Non-Tender, Normal, Normal Inspection Respiratory: Chest Non-Tender, Lungs Clear, No Accessory Muscle Use, No Resp iratory Distress, Normal Breath Sounds Cardiovascular: No Edema, No JVD, No Murmur, No Gallop, Normal Peripheral Pulses, Regular Rate/Rhythm Breast Exam: Deferred Gastrointestinal: No Organomegaly, Non Tender, No Pulsatile Mass, Normal Bowel Sounds, Soft Genitalia: Deferred Pelvic: Deferred Rectal: Deferred Extremities: No calf tenderness, Normal capillary refill, Normal range of motion, No pedal edema, Swelling (TENDERNESS AND SWELLING WITH LOCALIZED REDNESS AND CONTUSION ON LEFT DORSAL HAND, NO OPEN WOUND SEEN. ), Tender (AND SWELLING ON LEFT DORSAL HAND, NO DEFORMITY. ) Musculoskeletal : Apperance: Normal Neurologic: Alert, education finance processor II-XII nml as Tested, No Motor Deficits, Normal Affect, Normal Mood, No Sensory Deficits Cerebellar Function: Normal Reflexes: Normal Skin: Dry, Normal Color, Warm, Other (LOCALIZED REDNESS, SWELLING AND TENDERNESS ON LEFT DORSAL HAND, NO OPEN WOUND SEEN. ) Peripheral Pulses: 2+ carotid (R), 2+ carotid (L), 2+ Radial (R), 2+ Radial (L) Lymphatic: No Adenopathy Was a procedure done? Was a procedure done?: No Differential Diagnosis EXT Differential Diagnosis: Cellulitis, Fracture, Sprain, Dislocation, Contusion, Strain X-Ray, Labs, Meds, VS Vital Signs Date Time Temp Pulse Resp B/P (MAP) Pulse Ox O2 Delivery O2 Flow Rate FiO2 03/30/25 11:45 98.0 96 16 131/84 86 98.0 EXAM: XY L HAND 3V XRAY HISTORY: INJURY COMPARISON: None TECHNIQUE: Three views of the left hand were performed. FINDINGS: No acute fracture or dislocation are identified about the left hand. There is lateral soft tissue swelling in the ulnar side of the hand. IMPRESSION: 1. No acute fracture or dislocation is identified about the left hand. 2. Lateral soft tissue swelling in the ulnar side of the hand. ATED BY: EMANUEL BUTCHER MD DICTATED DATE/TIME: 03/30/251255 SIGNED BY: EMANUEL BUTCHER MD SIGNED DATE/TIME: 03/30/251255 CC: X-Ray, Labs, Meds, VS Comment EXTERNAL MEDICAL RECORDS REVIEWED: [NONE] INDEPENDENT HISTORIANS: [NONE] SOCIAL DETERMINANTS OF HEALTH: [NONE] LABS ORDERED: NONE REVIEWED AND INTERPRETED RESULTS: NONE IMAGING ORDERED: XR HAND LT TREATMENTS ORDERED: ROCEPHIN 1 G IM PROCEDURES PERFORMED: NONE CRITICAL CARE TIME: NONE I HAVE DISCUSSED THE PATIENT WITH THE ATTENDING PHYSICIAN DR. LOREDO AND HE AGREES WITH THE PATIENT'S PLAN OF CARE AND DISPOSITION. BASED ON HISTORY OF PRESENT ILLNESS, AND PHYSICAL EXAM, PATIENT WILL BE DISCHARGED HOME. DISCUSSED PLAN FOR DISCHARGE HOME WITH RX [KEFLEX AND NAPROXEN 500 MG]. MEDICATION WARNINGS GIVEN. SHARED DECISION MAKING: PATIENT INSTRUCTED TO FOLLOW UP WITH PRIMARY CARE PROVIDER IN 1-2 DAYS FOR RE-EVALUATION OF SYMPTOMS. PATIENT VERBALIZES UNDERSTANDING TO RETURN TO ED FOR NEW OR WORSENING SYMPTOMS OR IF FOLLOW UP WITH PCP CANNOT BE OBTAINED. PATIENT FEELS COMFORTABLE GOING HOME AT THIS TIME. ALL QUESTIONS ADDRESSED AT TIME OF DISCHARGE. Images Reviewed?: Images reviewed and evaluated by me Time of 1ST Reevaluation: 13:20 Reevaluation 1ST: Improved Patient Education/Counseling: Diagnosis, Treatment, Need For Follow Up Family Education/Counseling: Diagnosis, Treatment, Need For Follow Up Medical Screening: No EMC Exist At This Time Departure 1 Departure Time of Disposition: 13:30 Impression: Primary Impression: Contusion of left hand Qualified Codes: S60.222A - Contusion of left hand, initial encounter Additional Impression: Suspected soft tissue infection Disposition: 01 HOME / SELF CARE / HOMELESS Condition: Stable Additional Instructions: FOLLOW-UP WITH PCP IN 1 TO 2 DAYS. TAKE MEDICATIONS PRESCRIBED. RETURN TO ED FOR ANY NEW OR WORSENING SYMPTOMS. e-Prescriptions Naproxen (Naproxen) 500 Mg Tab 500 MG PO BID, #30 TAB Prov: SYLVIA ELDRIDGE 03/30/25 Cephalexin Monohydrate (Cephalexin) 500 Mg Cap 1 CAP PO TID, #30 CAP Prov: SYLVIA ELDRIDGE 03/30/25 Discharged With: Self Critical Care Note Critical Care Time?: No Stability Stability form required: No I personally scribed for SYLVIA ELDRIDGE ([email or web address]) on 03/30/25 at 13:04. Electronically submitted by Sachin Cevallos ([email or web address]). I personally scribed for SYLVIA ELDRIDGE ([email or web address]) on 03/30/25 at 13:05. Electronically submitted by Sachin Cevallos ([email or web address]). SYLVIA ELDRIDGE Mar 30, 2025 13:04
[2025-03-30] MEDS ORDERED: NAPR-746 PO (13:18)
[2025-03-30] MEDS ORDERED: CEPH500C PO (13:18)
[2025-03-30] MEDS: cefTRIAXone SOD 1,000 MG VL IM ONE (13:20)
[2025-03-30] MEDS: LIDOCAINE 1% HCL (LOCAL ANESTH.) INJ 20ML MDV ONE (13:20)
[2025-03-30 13:27] VITALS: BP 131/84; PULSE 86; RESP 16; TEMP 98; O2SAT 96
== END 2025-03-30 13:30 | disposition home or self-care (01) ==
LOC: ER 11:38
DX: S60.222A Contusion of left hand, initial encounter (principal); L08.9 Local infection of the skin and subcutaneous tissue, unspecified; F12.90 Cannabis use, unspecified, uncomplicated; Z79.899 Other long term (current) drug therapy; Z90.49 Acquired absence of other specified parts of digestive tract; X58.XXXA Exposure to other specified factors, initial encounter; Y93.89 Activity, other specified; Y92.89 Other specified places as the place of occurrence of the external cause; Y99.8 Other external cause status
CPT/HCPCS: 73130; 96372; 99283; J0696; J2003